=== PATIENT | male | born 1965 | race African-American/Black ===

== ENCOUNTER 2017-11-06 19:00 | Emergency (ER) | payer OTHER ==
[2017-11-06 19:05] VITALS: BP 124/75
[2017-11-06] MEDS ORDERED: IBUPROFEN 600 MG TABLET PO ONE (20:52)
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
--- NOTE | 2017-11-06 22:35 | RADIOLOGY REPORT (SQ) ---
EXAM DESCRIPTION: T SPINE AP/LAT COMPLETED DATE/TIME: 11/06/2017 9:23 pm REASON FOR STUDY: Trauma and pain COMPARISON: None. NUMBER OF VIEWS: Two views. TECHNIQUE: AP and lateral radiographic images acquired of the thoracic spine. LIMITATIONS: None. FINDINGS: MINERALIZATION: Normal. ALIGNMENT: Normal. No scoliosis. VERTEBRAE: No fracture or bone lesion. Maintained height, normal segmentation. DISCS: No significant loss of height or significant narrowing. No large osteophytes. HARDWARE: None in the spine. MEDIASTINUM AND SOFT TISSUES: Normal heart size and aortic contour. No soft tissue abnormality. VISUALIZED LUNG VILLEGAS: Clear. OTHER: No other significant finding. IMPRESSION: NO SIGNIFICANT RADIOGRAPHIC FINDING IN THE THORACIC SPINE. TECHNICAL DOCUMENTATION: JOB ID: [id number] [employer]- All Rights Reserved Reading location - IP/workstation name: [email or web address]
--- NOTE | 2017-11-06 22:36 | RADIOLOGY REPORT (SQ) ---
EXAM DESCRIPTION: CERV SP 3 VIEW OR LESS COMPLETED DATE/TIME: 11/06/2017 9:23 pm REASON FOR STUDY: Trauma and pain COMPARISON: None. NUMBER OF VIEWS: Three views. TECHNIQUE: AP, lateral and odontoid radiographic images acquired of the cervical spine. LIMITATIONS: None. FINDINGS: MINERALIZATION: Normal. ALIGNMENT: Anatomic. VERTEBRAE: Vertebral bodies of normal height. DISCS: Mild loss of disc space height at the C4/5 level. No large osteophytes. HARDWARE: None in the spine. SOFT TISSUES: No masses or calcifications. Lung apices clear. OTHER: No other significant finding. IMPRESSION: NO SIGNIFICANT RADIOGRAPHIC FINDING IN THE CERVICAL SPINE. TECHNICAL DOCUMENTATION: JOB ID: [id number] [employer]- All Rights Reserved Reading location - IP/workstation name: [email or web address]
== END 2017-11-06 22:03 | disposition home or self-care (01) ==
LOC: ER 19:00
DX: S16.1XXA Strain of muscle, fascia and tendon at neck level, initial encounter (principal); M54.2 Cervicalgia; M54.6 Pain in thoracic spine; V43.53XA Car driver injured in collision with pick-up truck in traffic accident, initial encounter
CPT/HCPCS: 72040; 72070; 99284

== ENCOUNTER → 2019-01-14 | Day surgery (SDC) | payer OTHER ==
[~2019-01-14] MED LIST: LIDOCAINE 1% INJ-PF (10 MG/ML) 30 ML SDV ONE
--- NOTE | 2019-01-14 16:29 | RADIOLOGY REPORT (SQ) ---
EXAM DESCRIPTION: U/S BIOPSY THYROID COMPLETED DATE/TIME: 01/14/2019 3:11 pm REASON FOR STUDY: MULTIPLE THYROID NODULES (E04.2) E04.2 NONTOXIC MULTINODULAR GOITER COMPARISON: Outside thyroid ultrasound 11/29/2018 TECHNIQUE: Prior ultrasound exam from [facility] medicine 11/29/2018 was reviewed and com pared to the current exam. Patient was scanned by both myself as well as the clinical laboratory technologist today. The right lobe thyr oid measures about 6 x 2.4 x 2 cm in size with the mid and lower half of the right lobe thyroid repl aced by a solid nodule with internal color flow, lobular ill-defined margins, measuring about 2.6 by 3.5 cm in size. This lesion was aspirated today. Further sonographic imaging today demonstrated a 7 mm well-circumscribed hypoechoic cyst with acousti c through transmission, TI-RADS 1 lesion in the posterior left lower pole thyroid. This can be follo wed by cereal sonography to evaluate for growth or change. The other left-sided thyroid nodules desc ribed on report 11/29/2018 are not identified today. On the right side, ultrasound of the neck soft tissues demonstrates a small lymph node along the righ t submandibular triangle measuring 9 mm in size. A 3.5 cm lymph node identified on ultrasound 019 is no longer identified. The procedure was discussed with the patient and written informed consent obtained. A timeout was pe rformed to confirm the procedure and patient's identity. The skin of the neck was prepped and draped in sterile fashion and 0.5 mL of 1% local lidocaine administered for local anesthesia. Under sonog raphic guidance, fine needle aspiration biopsy was performed of the mass in the right lobe of the thy roid. Two separate aspirations were performed. Hemostasis was obtained with direct manual compression. Th ere were no immediate complications. LIMITATIONS: None. FINDINGS: PATHOLOGY: Pending. IMPRESSION: ULTRASOUND-GUIDED BIOPSY PERFORMED OF A MASS IN THE RIGHT MID AND LOWER POLE LOBE OF TH E THYROID. PATHOLOGY PENDING AT THE TIME OF DICTATION. IMAGING TODAY DEMONSTRATED A 7 MM TI-RADS 1 LESION IN THE POSTERIOR LEFT LOWER POLE THYROID WHICH CAN BE FOLLOWED WITH IMAGING STUDIES. NO ENLARGED RIGHT CERVICAL LYMPH NODES WERE IDENTIFIED ON TODAY'S IMAGING. NO RIGHT-SIDED CERVICAL L YMPH NODE SAMPLING WAS PERFORMED. COMMENT: The [employer] (ACR) Thyroid Imaging Reporting And Data System (TI-RADS ) is an ultrasound feature based summed scoring system of risk categorization and management recommen dations for thyroid nodules. TI-RADS assessment categories are as follows: 0 - Incomplete exam: Additional imaging or comparison to prior examinations recommended. 1. - Benign: Fine-needle aspiration or follow-up not routinely recommended in the absence of clinical change. 2. - Not suspicious: Fine-needle aspiration or follow-up not routinely recommended in the absence of clinical change. 3. - Mildly suspicious: Fine-needle aspiration recommended if greater than or equal to 2.5 cm in size . Ultrasound follow-up recommended if greater than or equal to 1.5 cm in size. 4. - Moderately suspicious: Fine-needle aspiration recommended if greater than or equal to 1.5 cm in size. Ultrasound follow-up recommended if greater than or equal to 1.0 cm in size. 5. - Highly suspicious: Fine-needle aspiration recommended if greater than or equal to 1.0 cm in size . Ultrasound follow-up recommended if greater than or equal to 0.5 cm in size. Patient medication list reviewed: Yes- Quality ID# [id number]:Eligible professional attests to documenting i n the medical record they obtained, updated, or reviewed the patient's current medications. TECHNICAL DOCUMENTATION: JOB ID: [id number] [employer]- All Rights Reserved Reading location - IP/workstation name: [email or web address]
== END ==
LOC: RAD 10:27
PROVIDERS: ATTEND Otolaryngology
DX: E04.2 Nontoxic multinodular goiter (principal)
CPT/HCPCS: 88173 ×2; 60100; J3490

== ENCOUNTER 2020-03-18 13:01 | Emergency (ER) | payer OTHER ==
--- NOTE | 2020-03-18 14:16 | ER Document Report ---
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 He states he was unconscious for few seconds. He states he went to an urgent care before coming here and he did vomit at the urgent care. They sent him to the emergency room. I have greeted and performed a rapid initial assessment of this patient. A comprehensive ED assessment and evaluation of the patient, analysis of test results and completion of medical decision making process will be conducted by an additional ED providers. TRAVEL OUTSIDE OF THE [place] IN LAST 30 DAYS: No - Related Data Allergies/Adverse Reactions: No Known Allergies Allergy (Verified 03/18/20 14:11) Past Medical History - Social History Chew tobacco use (# tins/day): No Frequency of alcohol use: None Drug Abuse: None Renal/ Medical History: Denies: Hx Peritoneal Dialysis GI Medical History: Reports: Hx Gastroesophageal Reflux Disease Past Surgical History: Reports: Hx Orthopedic Surgery - R KNEE - Immunizations Immunizations up to date: No Hx Diphtheria, Pertussis, Tetanus Vaccination: No Physical Exam - Vital signs Vitals: Temp Pulse Resp BP Pulse Ox 98.7 F 73 18 134/64 H 97 03/18/20 13:06 03/18/20 13:06 03/18/20 13:06 03/18/20 13:06 03/18/20 13:06 Course - Vital Signs Vital signs: Temp Pulse Resp BP Pulse Ox 98.7 F 73 18 134/64 H 97 03/18/20 13:06 03/18/20 13:06 03/18/20 13:06 03/18/20 13:06 03/18/20 13:06 Doctor's Discharge - Discharge Referrals: MUNIRA VASQUES MD [Primary Care Provider] - Follow up as needed
[2020-03-18] MEDS ORDERED: OXYCODONE-ACETAMINOPHEN 5-325 MG TABLET PO ONE (14:19)
[2020-03-18] MEDS ORDERED: IBUPROFEN 800 MG TABLET PO ONE (14:19)
--- NOTE | 2020-03-18 15:04 | RADIOLOGY REPORT (SQ) ---
EXAM DESCRIPTION: CT HEAD WITHOUT IMAGES COMPLETED DATE/TIME: 03/18/2020 2:43 pm REASON FOR STUDY: Fell 5 feet landing on head and back COMPARISON: None. TECHNIQUE: Axial images acquired through the brain without intravenous contrast. Images reviewed wi th bone, brain and subdural windows. Additional sagittal and coronal reconstructions were generated. Images stored on PACS. All CT scanners at this facility use dose modulation, iterative reconstruction, and/or weight based d osing when appropriate to reduce radiation dose to as low as reasonably achievable (ALARA). [facility]: Dose Right [facility]: CareDose [facility]: Dose Right [facility]: Teradose 4D [facility]: [employer] RADIATION DOSE: CT Rad equipment meets quality standard of care and radiation dose reduction techniq ues were employed. CTDIvol: 53.2 mGy. DLP: 1124 mGy-cm. mGy. LIMITATIONS: None. FINDINGS: VENTRICLES: Normal size and contour. CEREBRUM: No masses. No hemorrhage. No midline shift. No evidence for acute infarction. Normal gra y/white matter differentiation. No areas of low density in the white matter. CEREBELLUM: No masses. No hemorrhage. No alteration of density. No evidence for acute infarction. EXTRAAXIAL SPACES: No fluid collections. No masses. ORBITS AND GLOBE: No intra- or extraconal masses. Normal contour of globe without masses. CALVARIUM: No fracture. PARANASAL SINUSES: No fluid or mucosal thickening. SOFT TISSUES: No mass or hematoma. OTHER: No other significant finding. IMPRESSION: NORMAL BRAIN CT WITHOUT CONTRAST. EVIDENCE OF ACUTE STROKE: NO. COMMENT: Quality ID # [id number]: Final reports with documentation of one or more dose reduction techniques (e.g., Automated exposure control, adjustment of the mA and/or kV according to patient size, use of iterative reconstruction technique) TECHNICAL DOCUMENTATION: JOB ID: [id number] 2010 [employer]- All Rights Reserved Reading location - IP/workstation name: [email or web address]
--- NOTE | 2020-03-18 15:05 | RADIOLOGY REPORT (SQ) ---
EXAM DESCRIPTION: CT CERVICAL SPINE WITHOUT IMAGES COMPLETED DATE/TIME: 03/18/2020 2:43 pm REASON FOR STUDY: Fell 5 feet landing on head and back COMPARISON: None. TECHNIQUE: Axial images acquired through the cervical spine without intravenous contrast. Images re viewed with lung, soft tissue and bone windows. Reconstructed coronal and sagittal MPR images review ed. Images stored on PACS. All CT scanners at this facility use dose modulation, iterative reconstruction, and/or weight based d osing when appropriate to reduce radiation dose to as low as reasonably achievable (ALARA). [facility]: Dose Right [facility]: CareDose [facility]: Dose Right [facility]: Teradose 4D [facility]: [employer] RADIATION DOSE: CT Rad equipment meets quality standard of care and radiation dose reduction techniq ues were employed. CTDIvol: 21.2 mGy. DLP: 510 mGy-cm. mGy. LIMITATIONS: None. FINDINGS: ALIGNMENT: Slight anterolisthesis of C6 relative to C5 which appears chronic. MINERALIZATION: Normal. VERTEBRAL BODIES: No fractures or dislocation. DISCS: Multilevel disc space narrowing with osteophytes. FACETS, LATERAL MASSES, POSTERIOR ELEMENTS: Facet arthropathy. No fractures. No dislocation. No ac tazlina findings. HARDWARE: None in the spine. VISUALIZED RIBS: No fractures. LUNG APICES AND SOFT TISSUES: No significant or acute findings. OTHER: No other significant finding. IMPRESSION: CHRONIC DEGENERATIVE CHANGES. NO ACUTE FINDINGS. TECHNICAL DOCUMENTATION: JOB ID: [id number] Quality ID # [id number]: Final reports with documentation of one or more dose reduction techniques (e.g., Au tomated exposure control, adjustment of the mA and/or kV according to patient size, use of iterative reconstruction technique) 2010 [employer]- All Rights Reserved Reading location - IP/workstation name: [email or web address]
--- NOTE | 2020-03-18 15:24 | RADIOLOGY REPORT (SQ) ---
EXAM DESCRIPTION: HAND LEFT 3 VIEWS; WRIST LEFT 3 VIEWS IMAGES COMPLETED DATE/TIME: 03/18/2020 3:04 pm REASON FOR STUDY: Fall landed on hand and wrist COMPARISON: None. NUMBER OF VIEWS: Six views. TECHNIQUE: AP, lateral, and oblique radiographic images acquired of the left hand and left wrist. LIMITATIONS: None. FINDINGS: MINERALIZATION: Normal. BONES: No acute fracture or dislocation. No worrisome bone lesions. Normal alignment. SOFT TISSUES: No foreign body. OTHER: No other significant finding. IMPRESSION: No fracture. TECHNICAL DOCUMENTATION: JOB ID: [id number] 2010 [employer]- All Rights Reserved Reading location - IP/workstation name: [email or web address]
--- NOTE | 2020-03-18 15:24 | RADIOLOGY REPORT (SQ) ---
EXAM DESCRIPTION: HAND LEFT 3 VIEWS; WRIST LEFT 3 VIEWS IMAGES COMPLETED DATE/TIME: 03/18/2020 3:04 pm REASON FOR STUDY: Fall landed on hand and wrist COMPARISON: None. NUMBER OF VIEWS: Six views. TECHNIQUE: AP, lateral, and oblique radiographic images acquired of the left hand and left wrist. LIMITATIONS: None. FINDINGS: MINERALIZATION: Normal. BONES: No acute fracture or dislocation. No worrisome bone lesions. Normal alignment. SOFT TISSUES: No foreign body. OTHER: No other significant finding. IMPRESSION: No fracture. TECHNICAL DOCUMENTATION: JOB ID: [id number] 2010 [employer]- All Rights Reserved Reading location - IP/workstation name: [email or web address]
--- NOTE | 2020-03-18 15:31 | RADIOLOGY REPORT (SQ) ---
EXAM DESCRIPTION: KNEE RIGHT 4 VIEWS IMAGES COMPLETED DATE/TIME: 03/18/2020 3:04 pm REASON FOR STUDY: Pain swelling from fall COMPARISON: None. NUMBER OF VIEWS: Four views. TECHNIQUE: AP, lateral, and both oblique radiographic images acquired of the right knee. LIMITATIONS: None. FINDINGS: MINERALIZATION: Osteopenia. BONES: No acute fracture or dislocation. No worrisome bone lesions. JOINT: Advanced osteoarthritis all 3 compartments. Joint effusion. SOFT TISSUES: No foreign body. OTHER: No other significant finding. IMPRESSION: Joint effusion. No fracture identified. TECHNICAL DOCUMENTATION: JOB ID: [id number] 2010 [employer]- All Rights Reserved Reading location - IP/workstation name: [email or web address]
--- NOTE | 2020-03-18 16:43 | ER Document Report ---
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 Patient states he may have lost consciousness. He did vomit x1. He is on no blood thinning medications. Patient denies any and all anterior posterior rib pain, cough, shortness of breath, johanne pain, midline back pain, pelvis pain, or pain to any other extremity. ROS: See HPI All other review of systems reviewed and otherwise negative Reviewed vital signs and nursing note as charted by RN. PHYSICAL EXAM: CONSTITUTIONAL: Alert and oriented and responds appropriately to questions. Well-appearing; well-nourished HEAD: Normocephalic; atraumatic EYES: PERRL; full extraocular range of motion ENT: Normal nose; no rhinorrhea; moist mucous membranes; pharynx without lesions noted NECK: Supple without meningismus; mild tenderness to the cervical spine in the midline area without any obvious step-offs; no cervical lymphadenopathy, no masses CARD: Regular rate and rhythm; no murmurs; symmetric distal pulses RESP: Normal chest excursion without splinting or tachypnea; breath sounds clear and equal bilaterally; no wheezes, no rhonchi, no rales ABD/GI: Normal bowel sounds; non-distended; soft, non-tender; no palpable organomegaly or masses BACK: The back appears normal and is non-tender to palpation EXT: Minimal swelling to the right knee with no abrasions or lacerations. Old surgical scar present. Patient has some tenderness to the left scaphoid region without any obvious swelling or redness. No deformity noted. Patient has excellent pulses to all 4 extremities SKIN: No acute lesions noted NEURO: CN 2-12 intact; 5/5 bilateral upper and lower extremity strength with sensation intact to light touch PSYCH: The patient's mood and manner are appropriate. Grooming and personal hygiene are appropriate. TRAVEL OUTSIDE OF THE [place] IN LAST 30 DAYS: No - Related data Allergies/Adverse Reactions: No Known Allergies Allergy (Verified 03/18/20 14:11) Past Medical History - General Information source: Patient - Social History Smoking Status: Current Every Day Smoker Chew tobacco use (# tins/day): No Frequency of alcohol use: None Drug Abuse: None Family History: Reviewed & Not Pertinent Patient has homicidal ideation: No Renal/ Medical History: Denies: Hx Peritoneal Dialysis GI Medical History: Reports: Hx Gastroesophageal Reflux Disease Past Surgical History: Reports: Hx Orthopedic Surgery - R KNEE - Immunizations Immunizations up to date: No Hx Diphtheria, Pertussis, Tetanus Vaccination: No Physical Exam - Vital signs Vitals: Temp Pulse Resp BP Pulse Ox 98.7 F 73 18 134/64 H 97 03/18/20 13:06 03/18/20 13:06 03/18/20 13:06 03/18/20 13:06 03/18/20 13:06 Course - Re-evaluation Re-evalutation: Given the history and physical examination, multiple imaging tests were ordered in triage. Cervical collar was placed. Imaging as recorded. Given the possible right knee effusion I cannot rule out ligamentous tear. We will place an Denilson wrap as well as provide crutches. Given the scaphoid tenderness to the left wrist, without any obvious fracture, we will place in a thumb spica splint with strict return precautions and follow-up with orthopedics. - Vital Signs Vital signs: Temp Pulse Resp BP Pulse Ox 98.7 F 73 18 134/64 H 97 03/18/20 13:06 03/18/20 13:06 03/18/20 13:06 03/18/20 13:06 03/18/20 13:06 Discharge - Discharge Clinical Impression: Contusion of left wrist, initial encounter Fall Qualifiers: Encounter type: initial encounter Qualified Code(s): W19.XXXA - Unspecified fall, initial encounter Closed head injury Qualifiers: Encounter type: initial encounter Qualified Code(s): S09.90XA - Unspecified injury of head, initial encounter Cervical strain, acute Qualifiers: Encounter type: initial encounter Qualified Code(s): S16.1XXA - Strain of muscle, fascia and tendon at neck level, initial encounter Right knee sprain Qualifiers: Encounter type: initial encounter Involved ligament of knee: unspecified ligament Qualified Code(s): S83.91XA - Sprain of unspecified site of right knee, initial encounter Condition: Good Disposition: HOME, SELF-CARE Instructions: Use of Crutches ([facility]), Ice & Elevation ([facility]) Prescriptions: Hydrocodone/Acetaminophen [Novi 5-325 mg Tablet] 1 tab PO Q8 #10 tablet Referrals: MUNIRA VASQUES MD [Primary Care Provider] - Follow up as needed JOSAFAT CHAPMAN JR, [ACTIVE PROVISIONAL STAFF] - Follow up as needed
[2020-03-18 17:22] VITALS: BP 118/76
== END 2020-03-18 17:23 | disposition home or self-care (01) ==
LOC: ER 13:01
DX: S09.90XA Unspecified injury of head, initial encounter (principal); S16.1XXA Strain of muscle, fascia and tendon at neck level, initial encounter; S83.91XA Sprain of unspecified site of right knee, initial encounter; S60.212A Contusion of left wrist, initial encounter; W17.89XA Other fall from one level to another, initial encounter; Y93.89 Activity, other specified; Y99.0 Civilian activity done for income or pay; F17.200 Nicotine dependence, unspecified, uncomplicated
CPT/HCPCS: 70450; 72125; 99282; 99285